=== PATIENT | male | born 1975 | race Caucasian/White ===

== ENCOUNTER 2018-06-23 21:44 | Emergency (ER) | payer MEDICAID ==
[~2018-06-23] VITALS: Ht 188 cm; Wt 89.8 kg
[2018-06-23 21:56] VITALS: BP_SYST 160
[2018-06-23 23:06] VITALS: BP_SYST 158
== END 2018-06-23 23:07 | disposition home or self-care (01) ==
LOC: SED 21:44
DX: H11.32 Conjunctival hemorrhage, left eye (principal); I10 Essential (primary) hypertension
CPT/HCPCS: 99281